=== PATIENT | female | born 1985 | race Caucasian/White ===

== ENCOUNTER 2016-06-10 14:35 | Emergency (ER) | payer SELFPAY ==
[~2016-06-10] VITALS: Ht 157.5 cm; Wt 53.2 kg
[2016-06-10 14:38] VITALS: BP 116/82; PULSE 47; RESP 16; O2SAT 100
[2016-06-10] MEDS ORDERED: LEVO50TA6 PO (14:46)
--- NOTE | 2016-06-10 15:05 | ED.REPORT ---
HPI-Extremity Problem Upper Date of Service Jun 10, 2016 ED Provider: Alex Mai MD A 30 year old female with a history of Grave's disease and hypothyroidism presents to the ED complaining of right wrist pain. The pt has had a ganglion cyst on this wrist, and was advised by her system safety engineer this morning to hit the wrist with a book. At 14:00 today, the pt used the thickest book she could find and had a friend hit her wrist. She is now experiencing pain on the top of her hand, and is concerned that she broke something. She has not taken any medications for pain. Nursing Notes Stated Complaint: R HAND INJURY Chief Complaint: Extremity Trauma Nursing Notes Reviewed: Yes Allergies: Coded Allergies: Penicillins (Verified Allergy, Severe, Hives, 06/10/16) Scheduled Levothyroxine (Levothyroxine) 50 Mcg Tablet 50 MCG PO DAILY General Time Seen by MD: 15:05 Chief Complaint Wrist injury right Hx Obtained From: Patient Arrived By: Walk-in Onset Occurred: 5 - 8 hours ago Symptom Duration: Since onset Recent Healthcare: No recent hospitalization, Recent doctor visit Similar Sx Previous: No Past Medical History Past Medical History Grave's disease hypothyroidism Past Surgical History thyroidectomy at 18 years old Smoking History Unknown if Ever Smoker Social History Alcohol Use: "Social" Drug Use: THC Other Social History: Good social support Ambulatory Status Independent Review of Systems Constitutional: Denies: Fever Musculoskeletal: Reports: Extremity pain, Denies: Back pain, Neck pain Skin: Denies Rash Complete sys rev & neg: except as marked. Respiratory: Denies: Non-productive cough, Shortness of breath Cardiovascular: Denies: Chest pain GI: Denies: Abdominal pain Physical Exam Initial Vital Signs Vital Signs (First) Date Time Temp Pulse Resp B/P Pulse Ox O2 Delivery O2 Flow Rate FiO2 06/10/16 14:38 36.3 47 16 116/82 100 Room Air Initial VS: Reviewed General/Constitutional: Awake, Alert Neck: Atraumatic, Supple, Full range of motion Respiratory / Chest: Atraumatic, Breath sounds NL, Breath sounds = bilat, No respiratory distress Cardiovascular: Heart rate NL, Regular rhythm, Heart sounds NL Upper Extremity / MS: Atraumatic, Full range of motion Wrist / Hand: Full range of motion good range of motion of right wrist raised area over second and third metacarpals tender over proximal metacarpal ganglion cyst on radial aspect of the ventral wrist Skin: Atraumatic, Color NL, No rash, Warm, Dry Neurologic: Oriented X3, Speech NL, No motor deficits, No sensory deficits Head / Eyes: Atraumatic, Normocephalic, PERRL, EOMI ENT: Atraumatic, Airway patent, Mucous membranes moist Abdomen: Atraumatic, Soft, Non-tender Back: Atraumatic, Full range of motion Lower Extremity / Pelvis / MS: Atraumatic, Full range of motion Psychiatric: Affect NL, Mood NL Interpretation & Diagnostics X-Ray Interpretation Xray Interpretation: IMPRESSION: No displaced fracture seen. If there is continued pain, followup exam or additional imaging such as MRI or CT could be performed for further assessment. Dictated by: Jaime Beltran RRA Interpreted: Naomi Silva MD on 06/10/2016 at 16:29 Transcribed by: CHRISTINA on 06/10/2016 at 16:29 Approved by: Naomi Silva MD, PhD on 06/10/2016 at 17:26 X-Ray Ordered: Hand right Interpretation / Wet Read by: Interpret - Radiologist Re-Eval/Medical Decision Source of Hx: Family Re-Evaluation/Progress : Time of Eval: 17:19 Patient Status: Condition improved Re-Evaluation/Progress Note: Pt rechecked, who is resting comfortably. She is informed of radiology results, diagnosis, and plan for discharge with followup. The pt understands and agrees with the plan. All questions are addressed at this time. Counseled Regarding: Diagnosis, Lab results, Need for follow-up, When/why to return to ED Discharge & Departure Impression: Primary Impression: Contusion of right wrist Disposition: Home Discharge Condition All VS Reviewed: Yes Condition: Stable Patient Instructions: Contusions in Adults (ED) Additional Instructions: Emergency Department evaluation included interview and examination. X-ray of the right wrist did not show any fracture. We have applied a splint. The splint is for comfort. Elevate right hand above the level apartment when able, apply ice 3-4 times a day keep ice wrapped in a towel. Ibuprofen 600 mg 3-4 times a day will help pain. Follow-up with primary care in about 1 week for recheck. Scribe Attestation Portions of this note were transcribed by Kitty Mireles I, Dr. Mai personally performed the history, physical exam and medical decision-making; I reviewed and confirmed the accuracy of the information in the transcribed note. Signed by: George Lovelace, 06/10/16 and 17:45. Alex Mai MD Jun 10, 2016 15:05 KITTY MIRELES Jun 10, 2016 16:01
--- NOTE | 2016-06-10 16:30 | DRSVH ---
PROCEDURE: X-RAY RIGHT HAND, MINIMUM THREE VIEWS ([id number]) INDICATIONS: trauma, swelling TECHNIQUE: 3 views of the hand(s) acquired. COMPARISON: None. FINDINGS: Bones: No fractures or dislocations. Carpal bones are normally aligned. No suspicious bony lesions . Soft tissues: No suspicious soft tissue calcifications. IMPRESSION: No displaced fracture seen. If there is continued pain, followup exam or additional derrick ging such as MRI or CT could be performed for further assessment. Dictated by: Jaime Beltran [facility] Interpreted: Naomi Silva MD on 06/10/2016 at 16:29 Transcribed by: CHRISTINA on 06/10/2016 at 16:29 Approved by: Naomi Silva MD, PhD on 06/10/2016 at 17:26
[2016-06-10 16:49] VITALS: BP 106/51; PULSE 56; O2SAT 100
[2016-06-10 17:32] VITALS: BP 105/57; PULSE 46; O2SAT 99
[2016-06-10 17:36] VITALS: BP 105/57; PULSE 46; O2SAT 99
== END 2016-06-10 17:37 | disposition home or self-care (01) ==
LOC: SED 14:35
DX: S60.211A Contusion of right wrist, initial encounter (principal); W50.0XXA Accidental hit or strike by another person, initial encounter; Y92.9 Unspecified place or not applicable; Y93.89 Activity, other specified; Y99.8 Other external cause status; M67.431 Ganglion, right wrist; Z86.39 Personal history of other endocrine, nutritional and metabolic disease; Z88.0 Allergy status to penicillin